=== PATIENT | female | born 1950 | race Caucasian/White ===

== ENCOUNTER 2020-07-27 12:56 | Emergency (ER) | payer SELFPAY ==
[~2020-07-27] VITALS: Ht 160 cm; Wt 60.0 kg
[2020-07-27 16:06] LABS: BASOPHILS % 0.2 % (0.0-2.0); EOSINOPHILS % 0.1 % (0.0-5.0); HEMATOCRIT. 33.4 % (36.0-48.0); HEMOGLOBIN. 11.2 g/dL (12.0-16.0); LYMPHOCYTES % 61.9 % (20.0-50.0); MEAN CORPUSCULAR VOLUME 86.4 fL (81.0-99.0); MEAN PLATELET VOLUME 7.9 fl (7.4-10.4); MONOCYTES % 2.5 % (2.0-8.0); NEUTROPHILS % 35.3 % (40.0-76.0); PLATELET 265 x1000/uL (130-400); RED BLOOD CELL COUNT 3.86 mill/uL (4.2-5.4); RED CELL DISTRIBUTION WIDTH 13.8 % (11.6-14.6)
[2020-07-27 16:12] LABS: CHLORIDE 111 mEq/L (98-107)
[2020-07-27 16:48] LABS: CLARITY URINE CLEAR (CLEAR); COLOR URINE YELLOW (YELLOW); KETONES URINE TRACE (NEGATIVE); LEUKOCYTE ESTERASE URINE 2+ (NEGATIVE); NITRITE URINE NEGATIVE (NEGATIVE); OCCULT BLOOD URINE TRACE (NEGATIVE); PROTEIN URINE 1+ (NEGATIVE); SPECIFIC GRAVITY URINE 1.013 (1.005-1.030); UROBILINOGEN URINE 0.2 E.U./dL (0.2-1.0)
[2020-07-27 17:09] VITALS: BP 177/96
== END 2020-07-27 18:21 | disposition home or self-care (01) ==
LOC: ER 13:16
DX: U07.1 COVID-19 (principal); N39.0 Urinary tract infection, site not specified; D64.9 Anemia, unspecified
CPT/HCPCS: 36415; 71045; 80053; 81003; 84484; 85025; 93005; 99285

== ENCOUNTER 2021-10-07 17:38 | Emergency (ER) | payer BC ==
[~2021-10-07] VITALS: Ht 154.9 cm; Wt 66.0 kg
[2021-10-07] MEDS ORDERED: IBUPROFEN 600MG TABLET PO ONE (20:15)
[2021-10-07] MEDS ORDERED: DICL100G27 TP (22:13)
[2021-10-07] MEDS ORDERED: NAPR-1176 MT (22:13)
[2021-10-07] MEDS ORDERED: KETOROLAC 60MG/2ML VIAL IM NR (22:15)
[2021-10-07 22:30] VITALS: BP 165/70
== END 2021-10-07 22:30 | disposition home or self-care (01) ==
LOC: ER 17:38
DX: M25.562 Pain in left knee (principal)
CPT/HCPCS: 73560; 96372; 99283; J1885

== ENCOUNTER 2021-10-24 18:52 | Emergency (ER) | payer BC ==
[~2021-10-24] VITALS: Ht 154.9 cm; Wt 67.0 kg
[~2021-10-24 18:52] MED LIST: DICL100G27 TP; NAPR-1176 MT
[2021-10-24 19:09] VITALS: BP 199/59
[2021-10-24] MEDS ORDERED: ACETAMINOPHEN WITH CODEINE 300/30MG TABLET PO ONE (21:00)
[2021-10-24] MEDS ORDERED: T3 PO (21:40)
== END 2021-10-24 22:20 | disposition home or self-care (01) ==
LOC: ER 19:52
DX: M17.12 Unilateral primary osteoarthritis, left knee (principal); Z98.890 Other specified postprocedural states
CPT/HCPCS: 99282

== ENCOUNTER 2022-10-10 09:28 | Emergency (ER) | payer BC, OTHER ==
[~2022-10-10] VITALS: Ht 152.4 cm; Wt 58.0 kg
[~2022-10-10 09:28] MED LIST changes: -DICL100G27 TP; +DICL100G32 TP; +T3 PO
[2022-10-10] MEDS ORDERED: IBUPROFEN 600MG TABLET PO ONE (10:00)
[2022-10-10] MEDS ORDERED: IBUP-2028 PO (10:59)
[2022-10-10 11:13] VITALS: BP 155/77
== END 2022-10-10 11:15 | disposition home or self-care (01) ==
LOC: ER 09:28
DX: S40.021A Contusion of right upper arm, initial encounter (principal); W18.39XA Other fall on same level, initial encounter; Y93.89 Activity, other specified; Y92.89 Other specified places as the place of occurrence of the external cause; Y99.8 Other external cause status
CPT/HCPCS: 73080; 73090; 73110; 73120; 99284

== ENCOUNTER → 2023-09-07 | Outpatient (CLI) | payer BC, MEDICARE ==
[~2023-09-07] MED LIST changes: +IBUP-2028 PO
== END | disposition home or self-care (01) ==
LOC: RAD 09-06 11:27 → CARD 09:13
PROVIDERS: ATTEND Internal Medicine Geriatric Medicine
DX: I07.1 Rheumatic tricuspid insufficiency (principal); I10 Essential (primary) hypertension; R60.9 Edema, unspecified
CPT/HCPCS: 93306

== ENCOUNTER 2024-01-11 12:26 | Inpatient (IN) | payer BC, MEDICARE, OTHER ==
[~2024-01-11] VITALS: Ht 152.4 cm; Wt 59.0 kg
[2024-01-11 13:23] LABS: HEMATOCRIT. 37.4 % (36.0-48.0); HEMOGLOBIN. 12.6 g/dL (12.0-16.0); MEAN CORPUSCULAR HEMOGLOBIN 30.1 pg (28.0-32.0); MEAN CORPUSCULAR HGB CONC 33.6 g/dL (31.0-37.0); MEAN CORPUSCULAR VOLUME 89.7 fL (81.0-99.0); MEAN PLATELET VOLUME 7.7 fl (7.4-10.4); PLATELET 191 x1000/uL (130-400); RED BLOOD CELL COUNT 4.17 mill/uL (4.2-5.4); RED CELL DISTRIBUTION WIDTH 13.9 % (11.6-14.6); WHITE BLOOD COUNT 19.4 x1000/uL (4.5-11.0)
[2024-01-11 13:34] LABS: DIFFERENTIAL COMMENT 1
[2024-01-11 13:40] LABS: CHLORIDE 109 mEq/L (98-107); POTASSIUM 4.1 mEq/L (3.5-5.1); SODIUM 141 mEq/L (136-145)
[2024-01-11 13:41] LABS: CARBON DIOXIDE 26 mEq/L (21-32)
[2024-01-11 13:46] LABS: CREATININE 0.8 mg/dL (0.6-1.0); GLUCOSE 98 mg/dL (70-105); UREA NITROGEN BLOOD 15 mg/dL (9-23)
[2024-01-11 13:48] LABS: ALANINE AMINOTRANSFERASE 15 IU/L (10-49); ALBUMIN 4.5 g/dL (3.2-4.8); ASPARTATE AMINOTRANSFERASE 21 IU/L (<34); BILIRUBIN TOTAL 0.3 mg/dL (0.1-1.0); PROTEIN TOTAL 6.8 g/dL (6.0-8.3)
[2024-01-11 13:53] LABS: TROPONIN I HIGH SENSITIVITY < 4 ng/L (3.0-34)
[2024-01-11 14:08] LABS: PLATELET ESTIMATE NORMAL
[2024-01-11 14:11] LABS: SMUDGE CELLS 1+
[2024-01-11] MEDS ORDERED: CEFTRIAXONE 1GM/50ML 50 ML IV ONE (14:30)
[2024-01-11] MEDS: CEFTRIAXONE 1GM/50ML 50 ML IV NR (16:58)
[2024-01-11] MEDS: LABETALOL 5MG/ML 4ML INJ IV NR (17:00)
[2024-01-11 18:37] VITALS: BP 198/72; PULSE 65; RESP 16; TEMP 98
[2024-01-11 18:48] VITALS: BP 186/72; PULSE 70
[2024-01-11 18:54] VITALS: BP 186/72; PULSE 70; RESP 20; TEMP 98
[2024-01-11] MEDS: HYDRALAZINE 20MG/ML VIAL IV NR (19:05)
[2024-01-11] MEDS ORDERED: MAGNESIUM/ALUMINUM HYDROXIDE/SIMETHICONE 30ML UDC PO PRN (19:45)
[2024-01-11] MEDS ORDERED: DEXTROSE 50% WATER 50ML SYRINGE IV PRN (19:45)
[2024-01-11] MEDS ORDERED: IPRATROPIUM/ALBUTEROL 0.5-3(2.5)MG/3ML NEB HHN PRN (19:45)
[2024-01-11] MEDS ORDERED: ACETAMINOPHEN 325MG TABLET PO PRN (19:45)
[2024-01-11] MEDS ORDERED: GUAIFENESIN 200MG/10ML SUGAR FREE UDC PO PRN (19:45)
[2024-01-11] MEDS ORDERED: ONDANSETRON HCL 4MG/2ML INJ IV PRN (19:45)
[2024-01-11] MEDS ORDERED: DOCUSATE SODIUM 100MG CAPSULE PO PRN (19:45)
[2024-01-11] MEDS ORDERED: ZOLPIDEM TARTRATE 5MG TABLET PO PRN (19:45)
[2024-01-11 20:00] VITALS: BP 163/48; PULSE 72; RESP 19; TEMP 98.1
[2024-01-11] MEDS: BLOOD SUGAR DIAGNOSTIC STRIP TEST SCH (20:25)
[2024-01-11] MEDS: INSULIN LISPRO 100 UNITS/ML SUBCUT SCH (20:25)
[2024-01-11] MEDS: ACETAMINOPHEN 325MG TABLET PO PRN (20:28)
[2024-01-11 20:39] VITALS: BP 170/52; PULSE 73
[2024-01-11] MEDS: CLONIDINE 0.1MG TABLET PO PRN (20:39)
[2024-01-11 21:39] VITALS: BP 116/46; PULSE 71
[2024-01-12 01:10] LABS: ALBUMIN 3.9 g/dL (3.2-4.8); CREATINE KINASE MB FRACTION < 0.5 ng/mL (0.5-3.6); TROPONIN I HIGH SENSITIVITY 4 ng/L (3.0-34)
[2024-01-12 04:00] VITALS: BP 111/43; PULSE 66; RESP 19; TEMP 98.1
[2024-01-12 07:06] LABS: HEMOGLOBIN 11.6 g/dL (12.0-16.0); MEAN CORPUSCULAR HEMOGLOBIN 29.9 pg (28.0-32.0); MEAN CORPUSCULAR VOLUME 90.4 fL (81.0-99.0); PLATELET 184 x1000/uL (130-400); RED BLOOD CELL COUNT 3.87 mill/uL (4.2-5.4); RED CELL DISTRIBUTION WIDTH 13.7 % (11.6-14.6); WHITE BLOOD COUNT 16.3 x1000/uL (4.5-11.0)
[2024-01-12 07:29] LABS: CHLORIDE 107 mEq/L (98-107); SODIUM 142 mEq/L (136-145)
[2024-01-12 07:30] LABS: CALCIUM 8.8 mg/dL (8.7-10.4); CARBON DIOXIDE 25 mEq/L (21-32); CREATINE KINASE MB FRACTION < 0.5 ng/mL (0.5-3.6)
[2024-01-12 07:35] LABS: CREATININE 0.9 mg/dL (0.6-1.0); GLUCOSE 100 mg/dL (70-105); UREA NITROGEN BLOOD 20 mg/dL (9-23)
[2024-01-12 07:36] LABS: ALANINE AMINOTRANSFERASE 12 IU/L (10-49)
[2024-01-12 07:37] LABS: ALBUMIN 3.7 g/dL (3.2-4.8); ASPARTATE AMINOTRANSFERASE 19 IU/L (<34); BILIRUBIN TOTAL 0.3 mg/dL (0.1-1.0); PROTEIN TOTAL 6.1 g/dL (6.0-8.3)
[2024-01-12 07:42] LABS: TROPONIN I HIGH SENSITIVITY < 4 ng/L (3.0-34)
[2024-01-12 08:00] VITALS: BP 136/49; PULSE 65; RESP 16; TEMP 97.5
[2024-01-12 08:07] LABS: CLARITY URINE CLOUDY (CLEAR); COLOR URINE YELLOW (YELLOW); GLUCOSE URINE NEGATIVE (NEGATIVE); KETONES URINE NEGATIVE (NEGATIVE); LEUKOCYTE ESTERASE URINE 2+ (NEGATIVE); NITRITE URINE NEGATIVE (NEGATIVE); OCCULT BLOOD URINE NEGATIVE (NEGATIVE); PROTEIN URINE 1+ (NEGATIVE); SPECIFIC GRAVITY URINE 1.014 (1.005-1.030); UROBILINOGEN URINE 0.2 E.U./dL (0.2-1.0)
[2024-01-12 08:26] LABS: *AMPHETAMINES SCREEN URINE NEGATIVE (NEGATIVE); *BARBITURATES SCREEN URINE NEGATIVE (NEGATIVE); *BENZODIAZEPINES SCREEN URINE NEGATIVE (NEGATIVE); *COCAINE SCREEN URINE NEGATIVE (NEGATIVE); METHADONE URINE SCREEN NEGATIVE (NEGATIVE); OPIATES URINE SCREEN NEGATIVE (NEGATIVE)
[2024-01-12 08:27] LABS: CANNABINOID URINE SCREEN NEGATIVE (NEGATIVE); ECSTASY MDMA SCREEN URINE NEGATIVE (NEGATIVE); PHENCYCLIDINE URINE SCREEN NEGATIVE (NEGATIVE)
[2024-01-12 09:00] LABS: SQUAMOUS EPITHELIAL CELL URINE 1+ /lpf (RARE/1+)
[2024-01-12 09:01] LABS: RBC URINE 0-2 /hpf (0-2); WBC URINE 25-50 /hpf (0-2); YEAST URINE NONE SEEN
[2024-01-12 09:02] LABS: BACTERIA URINE 1+
[2024-01-12] MEDS: AMLODIPINE 10MG TABLET PO SCH (09:47)
[2024-01-12 12:00] VITALS: BP 116/60; PULSE 65; RESP 18; TEMP 97
[2024-01-12 16:00] VITALS: BP 138/68; PULSE 60; RESP 16; TEMP 97.5
[2024-01-12] MEDS: CEFTRIAXONE 1GM/50ML 50 ML IV SCH (16:13)
[2024-01-12 20:00] VITALS: BP 138/55; PULSE 72; RESP 20; TEMP 97.3
[2024-01-12 23:56] VITALS: BP 116/45; PULSE 67; RESP 19; TEMP 97.1
[2024-01-13 04:00] VITALS: BP 112/71; PULSE 54; RESP 19; TEMP 97.6
[2024-01-13 08:00] VITALS: BP 149/55; PULSE 70; RESP 18; TEMP 97.3
[2024-01-13 12:00] VITALS: BP 131/56; PULSE 66; RESP 18; TEMP 97.5
[2024-01-13 13:23] LABS: HEMATOCRIT 35.4 % (36.0-48.0); HEMOGLOBIN 11.9 g/dL (12.0-16.0); MEAN CORPUSCULAR HGB CONC 33.5 g/dL (31.0-37.0); MEAN CORPUSCULAR VOLUME 89.4 fL (81.0-99.0); PLATELET 179 x1000/uL (130-400); RED BLOOD CELL COUNT 3.96 mill/uL (4.2-5.4); RED CELL DISTRIBUTION WIDTH 13.8 % (11.6-14.6); WHITE BLOOD COUNT 16.8 x1000/uL (4.5-11.0)
[2024-01-13 13:24] LABS: CARBON DIOXIDE 25 mEq/L (21-32); CHLORIDE 108 mEq/L (98-107); SODIUM 141 mEq/L (136-145)
[2024-01-13 13:25] LABS: CALCIUM 8.4 mg/dL (8.7-10.4)
[2024-01-13 13:30] LABS: CREATININE 0.8 mg/dL (0.6-1.0); GLUCOSE 69 mg/dL (70-105); UREA NITROGEN BLOOD 24 mg/dL (9-23)
[2024-01-13 16:00] VITALS: BP 121/60; PULSE 68; RESP 17; TEMP 97.6
[2024-01-13 16:15] LABS: HEMATOCRIT. 35.4 % (36.0-48.0); HEMOGLOBIN. 11.7 g/dL (12.0-16.0); MEAN CORPUSCULAR HEMOGLOBIN 30.2 pg (28.0-32.0); MEAN CORPUSCULAR VOLUME 91.6 fL (81.0-99.0); MEAN PLATELET VOLUME 8.4 fl (7.4-10.4); PLATELET 183 x1000/uL (130-400); RED BLOOD CELL COUNT 3.86 mill/uL (4.2-5.4); RED CELL DISTRIBUTION WIDTH 13.6 % (11.6-14.6); WHITE BLOOD COUNT 17.1 x1000/uL (4.5-11.0)
[2024-01-13 16:17] LABS: DIFFERENTIAL COMMENT 1
[2024-01-13 19:44] LABS: PLATELET ESTIMATE NORMAL
[2024-01-13 20:00] VITALS: BP 144/51; PULSE 73; RESP 18; TEMP 98
[2024-01-13] MEDS: PIPERACILLIN/TAZO 3.375G/50ML 50 ML IV SCH (22:00)
[2024-01-14] VITALS: BP 144/51; PULSE 73; RESP 18; TEMP 97.8
[2024-01-14 04:00] VITALS: BP 157/55; PULSE 67; RESP 18; TEMP 97.5
[2024-01-14 06:45] LABS: HEMATOCRIT. 37.3 % (36.0-48.0); HEMOGLOBIN. 12.5 g/dL (12.0-16.0); MEAN CORPUSCULAR HGB CONC 33.6 g/dL (31.0-37.0); MEAN CORPUSCULAR VOLUME 89.1 fL (81.0-99.0); MEAN PLATELET VOLUME 8.1 fl (7.4-10.4); PLATELET 189 x1000/uL (130-400); RED BLOOD CELL COUNT 4.18 mill/uL (4.2-5.4); RED CELL DISTRIBUTION WIDTH 13.8 % (11.6-14.6); WHITE BLOOD COUNT 18.7 x1000/uL (4.5-11.0)
[2024-01-14 06:57] LABS: CARBON DIOXIDE 27 mEq/L (21-32); CHLORIDE 108 mEq/L (98-107); POTASSIUM 4.3 mEq/L (3.5-5.1); SODIUM 141 mEq/L (136-145)
[2024-01-14 07:03] LABS: CREATININE 0.9 mg/dL (0.6-1.0); GLUCOSE 91 mg/dL (70-105); UREA NITROGEN BLOOD 20 mg/dL (9-23)
[2024-01-14 07:09] LABS: DIFFERENTIAL COMMENT 1
[2024-01-14 08:00] VITALS: BP 151/60; PULSE 70; RESP 18; TEMP 97.1
[2024-01-14] MEDS ORDERED: CEPH500C2 MT (08:14)
[2024-01-14] MEDS ORDERED: HYDR25TA MT (08:14)
[2024-01-14] MEDS ORDERED: AMLO10TA4 MT (08:14)
[2024-01-14] MEDS: HYDROCHLOROTHIAZIDE 25MG TABLET PO SCH (08:40)
[2024-01-14 12:00] VITALS: BP 134/80; PULSE 72; RESP 18; TEMP 96.9
[2024-01-14 12:09] VITALS: BP 134/80; PULSE 72; TEMP 96.9; O2SAT 97
[2024-01-14] MEDS ORDERED: NITR-87 PO (13:40)
[2024-01-14] MEDS: NITROFURANTOIN 100MG M/M CAPSULE PO SCH (14:03)
[2024-01-14 14:25] LABS: PLATELET ESTIMATE NORMAL
[2024-01-14 16:00] VITALS: BP 144/61; PULSE 73; RESP 18; TEMP 96.9
== END 2024-01-14 15:55 | disposition home or self-care (01) | DRG 305 ==
LOC: ER 12:26 → EDBEDREQ 17:14 → EDBEDREQTM 17:14 → 7EST 18:50
PROVIDERS: ADMIT Internal Medicine; ATTEND Internal Medicine
DX: I16.0 Hypertensive urgency (principal); N39.0 Urinary tract infection, site not specified; I45.10 Unspecified right bundle-branch block; I10 Essential (primary) hypertension; Z90.710 Acquired absence of both cervix and uterus; Z91.148 Patient's other noncompliance with medication regimen for other reason
CPT/HCPCS: 36415; 71045; 80048; 80053; 80061; 80305; 81003; 82040; 82553; 82962; 83036; 83605; 84145; 84484; 85025; 85027; 87077; 87186; 93005; 93306; 93970; 99291; J0360; J0696; J2543; J3490

== ENCOUNTER → 2024-03-02 | Outpatient (CLI) | payer OTHER ==
[~2024-03-02] MED LIST changes: +AMLO10TA4 MT; +CEPH500C2 MT; +HYDR25TA MT; -IBUP-2028 PO; -NAPR-1176 MT; +NITR-87 PO; -T3 PO
== END | disposition home or self-care (01) ==
LOC: MRI 09:23
DX: S46.011A Strain of muscle(s) and tendon(s) of the rotator cuff of right shoulder, initial encounter (principal); S46.012A Strain of muscle(s) and tendon(s) of the rotator cuff of left shoulder, initial encounter; S33.39XA Dislocation of other parts of lumbar spine and pelvis, initial encounter; M19.011 Primary osteoarthritis, right shoulder; M19.012 Primary osteoarthritis, left shoulder; M25.412 Effusion, left shoulder; M47.812 Spondylosis without myelopathy or radiculopathy, cervical region; M25.411 Effusion, right shoulder; M48.02 Spinal stenosis, cervical region; M17.0 Bilateral primary osteoarthritis of knee; M51.36 Other intervertebral disc degeneration, lumbar region; M48.061 Spinal stenosis, lumbar region without neurogenic claudication; X58.XXXA Exposure to other specified factors, initial encounter; Y93.89 Activity, other specified; Y92.89 Other specified places as the place of occurrence of the external cause; Y99.8 Other external cause status
CPT/HCPCS: 72052; 72114; 73221; 73565

== ENCOUNTER 2025-03-08 13:05 | Emergency (ER) | payer MEDICARE ==
[~2025-03-08] VITALS: Ht 152.4 cm; Wt 63.0 kg
[~2025-03-08 13:05] MED LIST changes: +AMLO-905 MT; -AMLO10TA4 MT; -CEPH500C2 MT; -DICL100G32 TP; -NITR-87 PO
[2025-03-08 13:13] VITALS: TEMP 36.7; O2SAT 99
[2025-03-08] MEDS: CLONIDINE 0.1MG TABLET PO NR (14:25)
[2025-03-08 14:41] LABS: HEMATOCRIT. 36.0 % (36.0-48.0); HEMOGLOBIN. 11.8 g/dL (12.0-16.0); MEAN PLATELET VOLUME 8.4 fl (7.4-10.4); PLATELET 201 x1000/uL (130-400); RED BLOOD CELL COUNT 4.11 mill/uL (4.2-5.4); RED CELL DISTRIBUTION WIDTH 14.6 % (11.6-14.6)
[2025-03-08 15:04] LABS: CREATININE 0.8 mg/dL (0.6-1.0); UREA NITROGEN BLOOD 20 mg/dL (9-23)
[2025-03-08 16:58] LABS: EOSINOPHILS % MANUAL 1.0 % (0.0-5.0); LYMPHOCYTES % MANUAL 62.0 % (20.0-60.0); MONOCYTES % MANUAL 3.0 % (2.0-8.0); NEUTROPHILS % MANUAL 34.0 % (45.0-75.0); PLATELET ESTIMATE NORMAL
[2025-03-08 18:49] LABS: HEMATOCRIT. 36.5 % (36.0-48.0); HEMOGLOBIN. 11.8 g/dL (12.0-16.0); MEAN PLATELET VOLUME 8.0 fl (7.4-10.4); PLATELET 193 x1000/uL (130-400); RED BLOOD CELL COUNT 4.17 mill/uL (4.2-5.4); RED CELL DISTRIBUTION WIDTH 14.1 % (11.6-14.6)
[2025-03-08 19:03] LABS: GLUCOSE URINE NEGATIVE (NEGATIVE); KETONES URINE NEGATIVE (NEGATIVE); LEUKOCYTE ESTERASE URINE 1+ (NEGATIVE); NITRITE URINE NEGATIVE (NEGATIVE); OCCULT BLOOD URINE NEGATIVE (NEGATIVE); PH URINE 6.0 (4.5-8.0); PROTEIN URINE NEGATIVE (NEGATIVE); SPECIFIC GRAVITY URINE 1.013 (1.005-1.030); UROBILINOGEN URINE 0.2 E.U./dL (0.2-1.0)
[2025-03-08 19:27] LABS: LYMPHOCYTES % MANUAL 64.0 % (20.0-60.0); MONOCYTES % MANUAL 3.0 % (2.0-8.0); NEUTROPHILS % MANUAL 33.0 % (45.0-75.0); PLATELET ESTIMATE NORMAL
[2025-03-08 19:30] LABS: COLOR URINE STRAW (YELLOW)
[2025-03-08 19:31] LABS: CLARITY URINE SL HAZY (CLEAR)
[2025-03-08 19:32] LABS: BACTERIA URINE TRACE; RBC URINE NONE SEEN /hpf (0-2); SQUAMOUS EPITHELIAL CELL URINE 2+ /lpf (RARE/1+)
[2025-03-08] MEDS ORDERED: LEVO-65 MT (21:51)
[2025-03-08] MEDS: LEVOFLOXACIN 500MG TABLET PO SCH (21:52)
[2025-03-08 22:02] VITALS: BP 151/52; PULSE 54; RESP 12; O2SAT 99
== END 2025-03-08 22:04 | disposition home or self-care (01) ==
LOC: ER 13:05
DX: I16.0 Hypertensive urgency (principal); N39.0 Urinary tract infection, site not specified; Z98.890 Other specified postprocedural states
CPT/HCPCS: 36415; 71045; 80048; 81003; 83605; 84145; 85025; 93005; 99285